=== PATIENT | female | born 1975 | race Caucasian/White ===

== ENCOUNTER 2024-11-04 15:20 | Emergency (ER) | payer BC ==
[~2024-11-04] VITALS: Ht 152.4 cm; Wt 81.0 kg
[2024-11-04 15:24] VITALS: O2SAT 98
[2024-11-04] MEDS ORDERED: ALBU18HF2 IH (22:02)
[2024-11-04] MEDS ORDERED: IBUP-1455 MT (22:02)
[2024-11-04] MEDS: IBUPROFEN 600MG TABLET PO ONE (22:22)
[2024-11-04] MEDS: ACETAMINOPHEN 500MG TABLET PO ONE (22:23)
[2024-11-04 23:24] VITALS: BP 136/86; PULSE 91; RESP 18; TEMP 37.1; O2SAT 97
== END 2024-11-04 23:26 | disposition home or self-care (01) ==
LOC: ER 15:20
DX: B34.9 Viral infection, unspecified (principal); Z88.0 Allergy status to penicillin; Z90.49 Acquired absence of other specified parts of digestive tract
CPT/HCPCS: 71045; 99283